=== PATIENT | female | born 1995 | race Caucasian/White ===

== ENCOUNTER 2017-05-19 01:00 | Observation (INO) | payer OTHER ==
[~2017-05-19] VITALS: Ht 165.1 cm; Wt 85.3 kg
[2017-05-19] MEDS ORDERED: METR250 PO (01:42)
[2017-05-19] MEDS ORDERED: PREN1TAB80 PO (01:42)
[2017-05-19] MEDS ORDERED: [UNRECOGNIZED DRUG - CODE] VG (01:45)
[2017-05-19 02:09] VITALS: BP 130/67
== END 2017-05-19 02:05 | disposition home or self-care (01) ==
LOC: 4S 01:00
PROVIDERS: ADMIT Obstetrics & Gynecology Gynecology; ATTEND Obstetrics & Gynecology Gynecology
DX: O23.593 Infection of other part of genital tract in pregnancy, third trimester (principal); Z3A.30 30 weeks gestation of pregnancy
CPT/HCPCS: 59025; G0378